=== PATIENT | male | born 1980 | race Caucasian/White ===

== ENCOUNTER 2022-03-13 22:14 | Emergency (ER) | payer BC ==
[~2022-03-13] VITALS: Ht 175.3 cm; Wt 108.9 kg
--- NOTE | 2022-03-13 22:30 | NUR ---
PATIENT NAME CALLED, NO ANSWER.
--- NOTE | 2022-03-13 22:50 | NUR ---
PATIENT NAME CALLED, NO ANSWER.
--- NOTE | 2022-03-13 23:28 | NUR ---
PATIENT NAME CALLED, PATIENT ANSWERED.
--- NOTE | 2022-03-13 23:29 | NUR ---
Patient stated, for three days, he has had left flank pain radiating to left abdomen and chest. Addendum: 03/13/22 at [id number] by [id number] Patient stated, for three days, he has had left flank pain radiating to left abdomen and chest. Patient states pain is "more in his left flank."
[2022-03-13 23:31] VITALS: BP 148/74
--- NOTE | 2022-03-14 01:09 | NUR ---
Patient taken to Chair per ER physician request.
[2022-03-14] MEDS ORDERED: KETOROLAC 60 MG/2 ML VIAL IM ONE (01:30)
--- NOTE | 2022-03-14 01:41 | NUR ---
Dr. Feliciano examining patient.
[2022-03-14] MEDS ORDERED: ACET-8386 PO (01:54)
[2022-03-14 02:00] VITALS: BP 137/85
--- NOTE | 2022-03-14 02:00 | NUR ---
Patient left without aftercare forms.
== END 2022-03-14 02:00 | disposition home or self-care (01) ==
LOC: MED 22:14
DX: R10.9 Unspecified abdominal pain (principal); Z98.890 Other specified postprocedural states
CPT/HCPCS: 99282